=== PATIENT | female | born 1970 | race Hispanic/Latino ===

== ENCOUNTER 2017-12-17 22:16 | Emergency (ER) | payer OTHER ==
[~2017-12-17] VITALS: Ht 154.9 cm; Wt 75.2 kg
[~2017-12-17 22:16] MED LIST: ACETTAB3 OR; AMOXICILLIN500 MG OR; BACTRIM DS1 TAB OR; FEOSOL200 MG OR; HELIDAC OR; LORTAB 5 OR; MEDDOSEPAK OR; NAPROSYN500 MG OR; NEXIUM40 M1 OR; NO; NO HOME MEDS; NO MEDS; PREVACID30 M2 OR; PRILOSEC OTC20 MG OR; RELPAX40 MG OR
[2017-12-17] MEDS ORDERED: VITAMIN D32000 UNIT PO (22:29)
[2017-12-17 23:34] LABS: HEMATOCRIT 35.9 % (37.0-47.0); HEMOGLOBIN 11.7 g/dl (12.0-16.0); IMMATURE GRANULOCYTES 0.4 % (0.0-1.0); MEAN CORPUSCULAR HGB 28.1 pG CALC (26.0-32.0); MEAN CORPUSCULAR HGB CONC 32.6 g/L CALC (32.0-36.0); NEUT# 6.55 thou/uL (2.00-7.15); RED BLOOD COUNT 4.16 mill/uL (4.20-5.60)
[2017-12-17 23:35] LABS: MEAN CELL VOLUME 86.3 fL CALC (80.0-100.0); URINE BILIRUBIN - DIPSTICK NEGATIVE (NEGATIVE); URINE BLOOD DIPSTICK NEGATIVE (NEGATIVE); URINE COLOR YELLOW; URINE GLUCOSE - DIPSTICK NEGATIVE (NEGATIVE); URINE KETONE NEGATIVE (NEGATIVE); URINE LEUK ESTERASE NEGATIVE (NEGATIVE); URINE NITRITE - DIPSTICK NEGATIVE (Negative); URINE PH 5.5 (4.5-8.0); URINE PROTEIN - DIPSTICK NEGATIVE (NEG-TRACE); URINE SPECIFIC GRAVITY <=1.005; URINE UROBILINOGEN - DIPSTICK 0.2 E.U./dL (0.2)
[2017-12-17 23:38] LABS: HCG SERUM/URINE (NEG/POS) NEGATIVE (NEGATIVE); URINE CLARITY CLEAR
[2017-12-17 23:44] LABS: ALBUMIN 3.9 g/dL (3.2-5.0); ALKALINE PHOSPHATASE 82 u/l (38-126); AMYLASE 70 u/l (30-110); ANION GAP 15 (6-22 (CALC)); BILIRUBIN, TOTAL 0.3 mg/dL (0.0-1.4); BUN 12 mg/dL (7-17); BUN/CREATININE RATIO 22 (12-20 (CALC)); CARBON DIOXIDE 25 mmol/l (22-30); CHLORIDE 105 mmol/l (95-108); CREATININE 0.5 mg/dL (0.5-1.0); GFR > 60 ML/MIN (>=60 (CALC)); GFR FOR AFR.AMER. > 60 ML/MIN (>=60 (CALC)); LIPASE 94 u/l (23-300); POTASSIUM 3.9 mmol/l (3.5-5.1); SGOT/AST 23 u/l (14-36); SGPT/ALT 37 u/l (9-52); SODIUM 141 mmol/l (137-146); TOTAL PROTEIN 7.1 g/dL (6.3-8.2)
[2017-12-18] MEDS ORDERED: ZOFRAN ODT4 MG PO (00:17)
[2017-12-18] MEDS ORDERED: PREVPAC PO (00:17)
[2017-12-18 00:28] VITALS: BP 118/63
[2017-12-18] MEDS ORDERED: PREVACID30 M3 PO (15:23)
[2017-12-18] MEDS ORDERED: AMOXICILLIN500 MG PO (15:24)
[2017-12-18] MEDS ORDERED: BIAXIN250 MG PO (15:25)
== END 2017-12-18 00:28 | disposition home or self-care (01) | DRG 392 ==
LOC: ED 22:16
PROVIDERS: Emergency Medicine
DX: K29.70 Gastritis, unspecified, without bleeding (principal); B96.81 Helicobacter pylori [H. pylori] as the cause of diseases classified elsewhere; K27.9 Peptic ulcer, site unspecified, unspecified as acute or chronic, without hemorrhage or perforation; R10.13 Epigastric pain

== ENCOUNTER → 2018-10-01 | Outpatient (REF) | payer OTHER ==
[~2018-10-01] MED LIST changes: +AMOXICILLIN500 MG PO; +BIAXIN250 MG PO; +PREVACID30 M3 PO; +PREVPAC PO; +VITAMIN D32000 UNIT PO; +ZOFRAN ODT4 MG PO
== END | disposition home or self-care (01) ==
LOC: MAMMO 09-17 11:30
PROVIDERS: ATTEND Physician Assistant Medical
DX: Z12.31 Encounter for screening mammogram for malignant neoplasm of breast (principal)